=== PATIENT | male | born 1985 | race Caucasian/White ===

== ENCOUNTER 2018-04-21 20:26 | Emergency (ER) | payer OTHER ==
[~2018-04-21] VITALS: Ht 165.1 cm; Wt 79.4 kg
[~2018-04-21 20:26] MED LIST: AZITHROMYCIN 2250 MG PO; CHERATUSSIN AC118 ML PO; DELSYM30 MG/5 M1 PO; IBUPROFEN 600600 M1 PO; NOHOMEMEDICATIONS; PREDNISONE 20 M20 M1 PO; PROMETHAZINE-D120 ML PO; VENTOLIN HFA 1818 GM INH
[2018-04-21] MEDS ORDERED: METFORMIN HCL500 MG PO (20:43)
[2018-04-21] MEDS ORDERED: TESSALON PERLE100 MG PO (22:00)
[2018-04-21] MEDS ORDERED: ZPAK PO (22:00)
[2018-04-21] MEDS ORDERED: MEDROLDOSEPACK PO (22:00)
[2018-04-21 22:09] VITALS: BP 123/79
== END 2018-04-21 22:09 | disposition home or self-care (01) ==
LOC: M.ERS 20:26
DX: J20.9 Acute bronchitis, unspecified (principal)

== ENCOUNTER 2018-06-06 09:26 | Emergency (ER) | payer OTHER ==
[~2018-06-06] VITALS: Ht 167.6 cm; Wt 77.1 kg
[~2018-06-06 09:26] MED LIST changes: +MEDROLDOSEPACK PO; +METFORMIN HCL500 MG PO; +TESSALON PERLE100 MG PO; +ZPAK PO
[2018-06-06 09:59] LABS: ABSOLUTE BASOPHILS 0.1 thou/uL (0.0-0.2); ABSOLUTE EOSINOPHILS 0.1 thou/uL (0.0-0.7); ABSOLUTE LYMPHOCYTES 1.9 thou/uL (0.8-5.3); ABSOLUTE MONOCYTES 0.6 thou/uL (0.0-1.2); ABSOLUTE NEUTROPHILS 6.6 thou/uL (1.6-8.1); BASOPHILS 0.5 %; EOSINOPHILS 0.7 %; HEMATOCRIT 41.6 % (42.0-52.0); HEMOGLOBIN 13.7 gm/dL (14.0-18.0); LYMPHOCYTES 20.7 %; MCH 27.7 pg (26.0-34.0); MONOCYTES 6.8 %; MPV 8.9 fl. (7.2-11.1); NUCLEATED RBCS 0 /100WBC; PLATELET COUNT* 274 thou/uL (150-400); POLYS 71.3 %; RBC 4.95 mil/uL (4.50-6.00); RDW-CV 13.6 % (10.5-14.5); WBC 9.3 thou/uL (4.0-11.0)
[2018-06-06 10:19] LABS: ALBUMIN 3.3 g/dL (3.4-5.0); ALKALINE PHOSPHATASE 94 U/L (46-116); ANION GAP 8 mmol/L (7-16); BUN 15 mg/dL (7-18); CHLORIDE 97 mmol/L (98-107); CO2 28 mmol/L (21-32); CREATININE 0.9 mg/dL (0.6-1.3); GLUCOSE 296 mg/dL (70-99); POTASSIUM 3.7 mmol/L (3.5-5.1); SGOT 14 U/L (15-37); SGPT 24 U/L (30-65); SODIUM 133 mmol/L (136-145); TOTAL BILIRUBIN 0.4 mg/dL (<0.1-1.0); TOTAL PROTEIN 8.5 g/dL (6.4-8.2); TROPONIN-I LEVEL <0.06 ng/mL (<0.06)
[2018-06-06] MEDS ORDERED: ZPAK PO (11:26)
[2018-06-06] MEDS ORDERED: TESSALON PERLE100 MG PO (11:26)
[2018-06-06 11:51] VITALS: BP 110/78
--- NOTE | 2018-06-07 11:02 | EKG ---
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 Hand: Oracio ZUNIGA : 1985 Requested By: Steve Blair Order Number: [id number] MD: Mal Javier Measurements Intervals [place] Rate: 101 P: 70 [place]: 165 QRS: -10 QRSD: 107 T: 53 QT: 331 QTc: 429 Interpretive Statements Sinus tachycardia ST elev, probable normal early repol pattern Baseline wander in lead(s) V4 No previous ECG available for comparison Electronically Signed On 06-07-2018 11:01:50 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
== END 2018-06-06 11:51 | disposition home or self-care (01) ==
LOC: M.ERS 09:26
PROVIDERS: Emergency Medicine Emergency Medical Services
DX: J18.9 Pneumonia, unspecified organism (principal); E11.9 Type 2 diabetes mellitus without complications; Z88.0 Allergy status to penicillin

== ENCOUNTER 2018-08-12 16:47 | Emergency (ER) | payer OTHER ==
[~2018-08-12] VITALS: Ht 167.6 cm; Wt 72.6 kg
[2018-08-12 16:56] VITALS: BP 135/77
[2018-08-12] MEDS ORDERED: BACTRIM DS TAB1 EACH PO (17:03)
[2018-08-12] MEDS ORDERED: NABUMETONE 750750 M1 PO (17:03)
== END 2018-08-12 17:27 | disposition home or self-care (01) ==
LOC: M.ERS 16:47
DX: M79.652 Pain in left thigh (principal); E11.9 Type 2 diabetes mellitus without complications; Z88.0 Allergy status to penicillin

== ENCOUNTER 2019-07-12 13:51 | Emergency (ER) | payer OTHER ==
[~2019-07-12] VITALS: Ht 167.6 cm; Wt 72.6 kg
[~2019-07-12 13:51] MED LIST changes: +BACTRIM DS TAB1 EACH PO; +NABUMETONE 750750 M1 PO
[2019-07-12 14:35] LABS: INFLUENZA A ANTIGEN Negative (Negative); INFLUENZA B ANTIGEN Negative (Negative)
[2019-07-12] MEDS ORDERED: ZPAK PO (14:49)
[2019-07-12] MEDS ORDERED: TESSALON PERLE100 MG PO (14:49)
[2019-07-12] MEDS ORDERED: VENTOLIN HFA 1818 GM INH (14:49)
[2019-07-12] MEDS ORDERED: MUCINEX600 MG PO (14:49)
[2019-07-12 14:56] VITALS: BP 132/75
== END 2019-07-12 14:57 | disposition home or self-care (01) ==
LOC: M.ERS 13:51
PROVIDERS: Nurse Practitioner Family
DX: J20.9 Acute bronchitis, unspecified (principal); E11.9 Type 2 diabetes mellitus without complications; Z88.0 Allergy status to penicillin

== ENCOUNTER 2021-06-05 20:37 | Emergency (ER) | payer OTHER ==
[~2021-06-05] VITALS: Ht 167.6 cm; Wt 81.7 kg
[~2021-06-05 20:37] MED LIST changes: +MUCINEX600 MG PO
[2021-06-05 22:49] VITALS: BP 134/89
--- NOTE | 2021-06-06 09:17 | EKG ---
[place] [address] ELECTROCARDIOGRAM REPORT Name: JUAREZ HANKS Room: [facility]#: [id number] Admission: 06/05/21 Attend Phys: Discharge: 06/05/21 Date of : 83 Date of Service: 06/05/212139 Report #: [id number] THIS REPORT FOR: //name// [facility] ED Test Date: 2021-06-05 Test Time: 21:40:06 Pat Name: JUAREZ HANKS Department: Room: Gender: [employer] Secre[employer] Officer: : 1985 Requested By: Santosh Estrella Order Number: [id number] MD: Meek Goddard Measurements Intervals [place] Rate: 122 P: 54 [place]: 160 QRS: -27 QRSD: 99 T: 27 QT: 320 QTc: 456 Interpretive Statements Sinus tachycardia Consider right atrial enlargement Borderline left axis deviation Artifact in lead(s) II,III,aVR,aVL,aVF,V1,V2 Compared to ECG 06/06/2018 09:48:40 ST (T wave) deviation no longer present Electronically Signed On 06-06-2021 9:17:00 HEAD BAKER by Meek Goddard [email or web address] <ELECTRONICALLY SIGNED> By: Meek Goddard MD, FAC 06/06/21916 39 39 Meek Goddard MD, [facility] /EPI
== END 2021-06-05 22:49 | disposition home or self-care (01) ==
LOC: M.ERS 20:37
DX: R51.9 Headache, unspecified (principal); Z20.822 Contact with and (suspected) exposure to COVID-19; R09.81 Nasal congestion; M79.18 Myalgia, other site; R63.0 Anorexia; E11.9 Type 2 diabetes mellitus without complications; Z98.890 Other specified postprocedural states; Z88.0 Allergy status to penicillin

== ENCOUNTER 2021-06-08 17:49 | Emergency (ER) | payer OTHER ==
[~2021-06-08] VITALS: Ht 167.6 cm; Wt 79.8 kg
[2021-06-08 19:56] LABS: HEMATOCRIT 40.7 % (42.0-52.0); HEMOGLOBIN 13.5 gm/dL (14.0-18.0); MCH 27.6 pg (26.0-34.0); MCHC 33.2 g/dL (28.0-37.0); MPV 8.6 fl. (7.2-11.1); RBC 4.9 mil/uL (4.50-6.00); RDW-CV 13.4 % (10.5-14.5); WBC 4.2 thou/uL (4.0-11.0)
[2021-06-08 20:07] LABS: ALBUMIN 3.6 g/dL (3.4-5.0); CALCIUM 8.8 mg/dL (8.5-10.1); CREATININE 1.2 mg/dL (0.6-1.3); TOTAL BILIRUBIN 0.3 mg/dL (<0.1-1.0); TOTAL PROTEIN 8.9 g/dL (6.4-8.2)
[2021-06-08] MEDS ORDERED: AZITHROMYCIN 2250 MG PO (21:04)
[2021-06-08] MEDS ORDERED: PREDNISONE50 MG PO (21:04)
[2021-06-08 21:21] VITALS: BP 142/88
== END 2021-06-08 21:21 | disposition home or self-care (01) ==
LOC: M.ERS 17:49
PROVIDERS: Personal Emergency Response Attendant
DX: R91.8 Other nonspecific abnormal finding of lung field (principal); R73.9 Hyperglycemia, unspecified; R53.1 Weakness; R11.10 Vomiting, unspecified; R05.9 Cough, unspecified; R50.9 Fever, unspecified; Z88.0 Allergy status to penicillin